=== PATIENT | male | born 1995 | race Caucasian/White ===

== ENCOUNTER 2016-05-24 13:43 | Emergency (ER) | payer OTHER ==
[~2016-05-24] VITALS: Ht 185.4 cm; Wt 79.0 kg
[2016-05-24 13:49] VITALS: TEMP 36.9; Ht 185.4 cm; Wt 79.0 kg
--- NOTE | 2016-05-24 15:16 | DIAGNOSTIC IMAGING REPORT ---
RIGHT FOOT MIN 3 VIEWS ROUTINE CLINICAL HISTORY: Right foot pain status post trauma COMPARISON: None. DISCUSSION: No fractures or dislocations are visualized. IMPRESSION: No fractures identified. Electronically signed by: Moris Prescott M.D. 05/24/2016 3:15 PM Dictated Date/Time: 05/24/2016 2:44 PM
[2016-05-24 15:54] VITALS: BP 140/85; PULSE 99; O2SAT 96
--- NOTE | 2016-05-24 19:21 | EMERGENCY ROOM VISIT NOTE ---
ED Visit Note First contact with patient: 13:52 CHIEF COMPLAINT: Right Foot injury History of present illness: This 20-year-old white male patient sustained an injury to the dorsum of the right foot, when he kicked a car today. He complains of swelling and pain with weight bearing. No numbness or weakness. Constant pain, moderate to severe, worse with movement and weight bearing. No ankle pain. No prior history of significant foot injury. No treatment yet. Pain is 6/10. Male friends accompany him today. He is here for [employer]. Patient is visibly intoxicated. REVIEW OF SYSTEMS: GENERAL: No fever or chills, easy fatigue, loss of appetite, or significant weight change. NEUROLOGICAL: No headache, change in mental status, weakness, numbness, or dizziness. PMH: Supplemental sheet was not completed. Previous surgeries: None Medical history: Benign Current medications: None Allergies: NKDA SOCIAL HISTORY: Patient lives at with roommates. No tobacco use, positive EtOH use. PHYSICAL EXAM: Vital Signs: Afebrile. Reviewed and filed in patient's chart. GENERAL: Well-developed, well-nourished, young white male, in obvious discomfort. No acute distress. Sitting on a bed. Alert, oriented and visibly intoxicated. Skin: Warm and dry with good turgor. No rashes or lesions. No ecchymosis or erythema. The patient is not diaphoretic. No abrasions. No significant edema over the dorsum of the foot. Musculoskeletal: There is tenderness over the dorsum of the foot but no deformity. The range of motion of the foot is limited secondary to pain. No pain with palpation over the medial or lateral malleolus. Good ankle motion. Achilles tendon is palpated to its entirety and found to be intact and without defect. Normal Jefferson test. Neurologic: Gross sensation is intact across the ankle and foot by soft touch. Peripheral pulses are 2+. EMERGENCY DEPARTMENT COURSE: Radiographic imaging obtained today of the foot was read by radiology as normal. Impression: Right foot contusion TREATMENT: Patient was educated regarding these findings. Conservative care measures were discussed. Ice and elevation for 3 days, then use moist heat. Ibuprofen, 600mg every 6 hours for the pain. Add Tylenol every 6 hours for breakthrough pain. Gentle motion daily. Limit weight bearing until the pain subsides. He was placed in a postop shoe to assist with ambulation. He was offered crutches. Patient declined. Follow up with your own doctor if the pain is no better in 5 days or if it gets worse. Contusion handout was provided. Current/Historical Medications No Active Prescriptions or Reported Meds Allergies Coded Allergies: No Known Allergies (Unverified , 05/24/16) Vital Signs Date Time Temp Pulse Resp B/P Pulse Ox O2 Delivery O2 Flow Rate FiO2 05/24/16 15:54 99 16 140/85 96 05/24/16 13:49 36.9 128 16 136/70 96 Departure Information Impression Primary Impression: Contusion of right foot, initial encounter Dispostion Home / Self-Care Condition GOOD Prescriptions No Active Prescriptions or Reported Meds Referrals [facility] Forms HOME CARE DOCUMENTATION FORM, MOTRIN USE, TYLENOL USE, IMPORTANT VISIT INFORMATION Patient Instructions [facility], ED Contusion Foot Additional Instructions Ice and elevate frequently to reduce pain and swelling Use a firm soled shoe to assist with weightbearing Weight-bear as tolerated-use your crutches until you can walk without a limp Tylenol and Motrin every 6 hours as needed for discomfort Follow-up with your PCP or [facility] services if symptoms are not improving over the next 5-7 days
== END 2016-05-24 15:56 | disposition home or self-care (01) ==
LOC: C.EDB 13:44 → C.EDD 15:56
DX: S90.31XA Contusion of right foot, initial encounter (principal); W22.8XXA Striking against or struck by other objects, initial encounter